=== PATIENT | male | born 1940 | race Asian ===

== ENCOUNTER 2018-06-08 05:41 | Day surgery (SDC) | payer OTHER ==
[~2018-06-08] VITALS: Ht 162.6 cm; Wt 60.4 kg
[~2018-06-08 05:41] MED LIST: LISI-661 PO; METF-960 PO; SIMV-259 PO
[2018-06-08] MEDS ORDERED: EPINEPHrine 1:1,000 [1 MG/ML] AMP IM ONE (05:42)
[2018-06-08] MEDS ORDERED: LIDOCAINE 4% 50 ML SOLUTION TP ONE (05:42)
[2018-06-08] MEDS ORDERED: BENZOCAINE 20% 50 MCG/SPRAY 57 GM TP ONE (05:42)
[2018-06-08] MEDS ORDERED: GLYCOPYRROLATE 0.2 MG/ML VIAL IM ONE (05:42)
[2018-06-08] MEDS ORDERED: LIDOCAINE 2% 30 ML JELLY TP ONE (05:42)
[2018-06-08] MEDS ORDERED: ALBUTEROL SULFATE 2.5 MG/0.5 ML NEB SOLUTION NEB ONE (05:42)
[2018-06-08] MEDS ORDERED: SODIUM CHLORIDE 0.9% 1,000 ML IV ONE ×2 (06:17→07:00)
[2018-06-08] MEDS ORDERED: MIDAZOLAM HCL 2 MG/2 ML VIAL ONE (08:00)
[2018-06-08] MEDS ORDERED: FentaNYL CITRATE-PF 100 MCG/2 ML VIAL ONE (08:00)
[2018-06-08] MEDS ORDERED: MethylPREDNISolone SOD SUCC 125 MG/2 ML VIAL IVP ONE (08:30)
[2018-06-08] MEDS ORDERED: OXYGEN THERAPY IH SCH (20:00)
== END 2018-06-08 10:00 | disposition home or self-care (01) ==
LOC: SURGERY 05:41
PROVIDERS: ATTEND Internal Medicine Critical Care Medicine
DX: J38.4 Edema of larynx (principal); B37.0 Candidal stomatitis; J98.09 Other diseases of bronchus, not elsewhere classified; J98.8 Other specified respiratory disorders; I10 Essential (primary) hypertension; E11.9 Type 2 diabetes mellitus without complications; E78.00 Pure hypercholesterolemia, unspecified; Z98.49 Cataract extraction status, unspecified eye; Z79.84 Long term (current) use of oral hypoglycemic drugs; Z87.891 Personal history of nicotine dependence; Z98.890 Other specified postprocedural states; Z79.899 Other long term (current) drug therapy
CPT/HCPCS: 31623; 31624; 71045; 87015; 87070; 87205; 87206; 87220; 88108; 88312; J0171; J2250; J2930; J3010; J3490; J7030

== ENCOUNTER 2019-04-23 06:15 | Day surgery (SDC) | payer OTHER ==
[~2019-04-23] VITALS: Ht 182.9 cm; Wt 55.5 kg
[~2019-04-23 06:15] MED LIST changes: +GLIM2 PO
[2019-04-23] MEDS ORDERED: SODIUM CHLORIDE 0.9% 1,000 ML IV ONE ×2 (06:20→06:30)
[2019-04-23 07:26] LABS: GLUCOMETER DEV NAME(LOC) SDS.; GLUCOSE,POINT OF CARE 99 MG/DL (70-110)
[2019-04-23] MEDS ORDERED: MIDAZOLAM HCL 2 MG/2 ML VIAL ONE ×2 (07:48→09:13)
[2019-04-23] MEDS ORDERED: FentaNYL CITRATE-PF 100 MCG/2 ML VIAL ONE ×2 (07:48→09:13)
[2019-04-23] MEDS ORDERED: MethylPREDNISolone SOD SUCC 125 MG/2 ML VIAL IVP ONE (09:15)
[2019-04-23] MEDS ORDERED: OXYGEN THERAPY IH SCH (20:00)
== END 2019-04-23 10:20 | disposition home or self-care (01) ==
LOC: SURGERY 06:15
PROVIDERS: ATTEND Internal Medicine Critical Care Medicine
DX: R05 Cough (principal); R63.4 Abnormal weight loss; R91.1 Solitary pulmonary nodule; J34.89 Other specified disorders of nose and nasal sinuses; J38.4 Edema of larynx; B37.0 Candidal stomatitis; J98.8 Other specified respiratory disorders; Z79.899 Other long term (current) drug therapy
CPT/HCPCS: 31623; 31624; 71045; 82962; 87015; 87070; 87101; 87205; 87206; 87220; 88108; 93005; J2250; J2930; J3010; J7030

== ENCOUNTER 2020-02-02 06:07 | Day surgery (SDC) | payer OTHER ==
[~2020-02-02] VITALS: Ht 182.9 cm; Wt 54.0 kg
[~2020-02-02 06:07] MED LIST changes: +SODIUM CHLORIDE 0.9% 1,000 ML ONE
[2020-02-02] MEDS ORDERED: BENZOCAINE 20% 50 MCG/SPRAY 57 GM TP ONE (06:08)
[2020-02-02] MEDS ORDERED: LIDOCAINE 2% 30 ML JELLY TP ONE (06:08)
[2020-02-02] MEDS ORDERED: ALBUTEROL SULFATE 2.5 MG/0.5 ML NEB SOLUTION NEB ONE (06:08)
[2020-02-02] MEDS ORDERED: LIDOCAINE 4% 50 ML SOLUTION TP ONE (06:08)
[2020-02-02] MEDS ORDERED: SODIUM CHLORIDE 0.9% 1,000 ML IV ONE (07:00)
[2020-02-02 07:40] LABS: GLUCOMETER DEV NAME(LOC) SDS.; GLUCOSE,POINT OF CARE 117 MG/DL (70-110)
[2020-02-02] MEDS ORDERED: MIDAZOLAM HCL 2 MG/2 ML VIAL ONE (08:14)
[2020-02-02] MEDS ORDERED: FentaNYL CITRATE-PF 100 MCG/2 ML VIAL ONE (08:15)
[2020-02-02] MEDS ORDERED: MethylPREDNISolone SOD SUCC 125 MG/2 ML VIAL ONE (08:37)
[2020-02-02] MEDS ORDERED: MethylPREDNISolone SOD SUCC 125 MG/2 ML VIAL IVP ONE (08:45)
[2020-02-02] MEDS ORDERED: OXYGEN THERAPY IH SCH (20:00)
== END 2020-02-02 09:55 | disposition home or self-care (01) ==
LOC: SURGERY 06:07
PROVIDERS: ATTEND Internal Medicine Critical Care Medicine
DX: J38.4 Edema of larynx (principal); B37.0 Candidal stomatitis; E78.00 Pure hypercholesterolemia, unspecified; Z11.59 Encounter for screening for other viral diseases; Z87.891 Personal history of nicotine dependence; Z98.42 Cataract extraction status, left eye; Z98.41 Cataract extraction status, right eye
CPT/HCPCS: 31623; 31624; 71045; 82962; 87015; 87070; 87101; 87205; 87206; 87220; 88108; J2250; J2930; J3010; J7030; U0003; J7613; Z7610

== ENCOUNTER 2020-09-11 05:52 | Day surgery (SDC) | payer OTHER ==
[2020-09-08 14:21] LABS: COVID AG,FIA SOURCE NASOPHARYNGEAL
[~2020-09-11] VITALS: Ht 182.9 cm; Wt 45.9 kg
[~2020-09-11 05:52] MED LIST changes: -LISI-661 PO; +LISI-893 PO; -SODIUM CHLORIDE 0.9% 1,000 ML ONE
[2020-09-11] MEDS ORDERED: SODIUM CHLORIDE 0.9% 1,000 ML ONE (06:14)
[2020-09-11] MEDS ORDERED: SODIUM CHLORIDE 0.9% 1,000 ML IV ONE (06:30)
[2020-09-11] MEDS ORDERED: MIDAZOLAM HCL 2 MG/2 ML VIAL ONE (08:03)
[2020-09-11] MEDS ORDERED: FentaNYL CITRATE PF 100 MCG/2 ML VIAL ONE (08:03)
[2020-09-11] MEDS ORDERED: MethylPREDNISolone SOD SUCC 125 MG/2 ML VIAL IVP ONE (09:15)
[2020-09-11] MEDS ORDERED: MethylPREDNISolone SOD SUCC 125 MG/2 ML VIAL ONE (09:40)
[2020-09-11] MEDS ORDERED: LIDOCAINE 4% 50 ML SOLUTION ONE (16:14)
[2020-09-11] MEDS ORDERED: LIDOCAINE 2% 30 ML JELLY ONE (16:14)
[2020-09-11] MEDS ORDERED: BENZOCAINE 20% 50 MCG/SPRAY 57 GM ONE (16:14)
[2020-09-11] MEDS ORDERED: OXYGEN THERAPY IH SCH (20:00)
== END 2020-09-11 11:20 | disposition home or self-care (01) ==
LOC: SURGERY 05:52
PROVIDERS: ATTEND Internal Medicine Critical Care Medicine
DX: J38.4 Edema of larynx (principal); B37.0 Candidal stomatitis; Z87.891 Personal history of nicotine dependence; I10 Essential (primary) hypertension; E78.00 Pure hypercholesterolemia, unspecified; E78.5 Hyperlipidemia, unspecified; E11.9 Type 2 diabetes mellitus without complications; Z79.899 Other long term (current) drug therapy
CPT/HCPCS: 31623; 31624; 71045; 87015; 87070; 87101; 87206; 87220; 87426; 88108; 88184; 88185; 88312; C9803; J2250; J2930; J3010; J7030; Z7610

== ENCOUNTER 2021-03-23 05:27 | Day surgery (SDC) | payer OTHER ==
[~2021-03-23] VITALS: Ht 182.9 cm; Wt 49.0 kg
[2021-03-23] MEDS ORDERED: LIDOCAINE 2% 30 ML JELLY TP ONE (05:28)
[2021-03-23] MEDS ORDERED: BENZOCAINE 20% 50 MCG/SPRAY 57 GM TP ONE (05:28)
[2021-03-23] MEDS ORDERED: LIDOCAINE 4% 50 ML SOLUTION TP ONE (05:28)
[2021-03-23] MEDS ORDERED: SODIUM CHLORIDE 0.9% 1,000 ML IV ONE (06:00)
[2021-03-23] MEDS ORDERED: SODIUM CHLORIDE 0.9% 1,000 ML ONE (06:05)
[2021-03-23 06:40] LABS: COVID AG,FIA SOURCE NASOPHARYNGEAL
[2021-03-23 07:40] LABS: GLUCOMETER DEV NAME(LOC) SDS.; GLUCOSE,POINT OF CARE 105 MG/DL (70-110)
[2021-03-23] MEDS ORDERED: MIDAZOLAM HCL 5 MG/ML VIAL ONE (07:46)
[2021-03-23] MEDS ORDERED: FentaNYL CITRATE PF 100 MCG/2 ML VIAL ONE (07:46)
[2021-03-23] MEDS ORDERED: MethylPREDNISolone SOD SUCC 125 MG/2 ML VIAL ONE (09:12)
[2021-03-23] MEDS ORDERED: MethylPREDNISolone SOD SUCC 125 MG/2 ML VIAL IVP ONE (09:15)
== END 2021-03-23 10:45 | disposition home or self-care (01) ==
LOC: SURGERY 05:27
PROVIDERS: ATTEND Internal Medicine Critical Care Medicine
DX: J38.4 Edema of larynx (principal); B37.0 Candidal stomatitis; E11.9 Type 2 diabetes mellitus without complications; Z79.899 Other long term (current) drug therapy; Z98.890 Other specified postprocedural states; Z90.49 Acquired absence of other specified parts of digestive tract
CPT/HCPCS: 31623; 31624; 71045; 82962; 87015; 87070; 87101; 87205; 87206; 87220; 87426; 88108; 88184; 88185; C9803; J2250; J2930; J3010; J7030; Z7610